=== PATIENT | male | born 1960 | race Caucasian/White ===

== ENCOUNTER 2018-11-18 14:02 | Emergency (ER) | payer OTHER, SELFPAY ==
[2018-11-18] VITALS (19 sets, daily range): BP systolic 125–136; BP diastolic 68–78; PULSE 64–84; RESP 12–22; TEMP 36.3; O2SAT 99–100
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
[2018-11-18] MEDS: Normal Saline 1,000 ML 1000 ML IV (14:50)
[2018-11-18 14:51] LABS: Abs Immature Grans 0.02 k/cumm (0.0-0.09); Absolute Basophil Count 0.02 k/cumm (0.0-0.2); Absolute Eosinophil Count 0.01 k/cumm (0.0-0.7); Absolute Monocyte Count 0.51 k/cumm (0.11-0.7); Absolute Neutrophil Count 6.68 k/cumm (1.2-6.7); Basophils % 0.2; Eosinophils % 0.1; HCT 39.5 % (40.0-50.0); HGB 13.5 g/dL (13.5-17.5); Immature Grans % 0.2; Lymphocytes % 11.1; Mean Corp. HGB Concentration 34.2 g/dL (32.0-36.0); Mean Corpuscular Hemoglobin 33.2 pg (27.0-33.0); Mean Corpuscular Volume 97.1 fL (80-95); Monocytes % 6.3; Neutrophils % 82.1; Platelet Count 190 x1000/uL (130-400); RBC 4.07 m/cumm (4.50-6.00); RBC Distribution Width 12.6 % (11.8-14.1); White Blood Cell Count 8.14 k/cumm (4.4-10.8)
[2018-11-18 15:05] LABS: ALT 29 U/L (12-78); AST 22 U/L (15-37); Albumin 3.8 g/dL (3.4-5.0); Alkaline Phosphatase 61 U/L (46-116); Anion Gap 8.1 mmol/L (3-11); BUN 23 mg/dL (7-18); Bilirubin, Total 1.5 mg/dL (0.2-1.0); CO2 27.9 mmol/L (21.0-32.0); CREATININE 1.13 mg/dL (0.70-1.30); Calcium 8.6 mg/dL (8.5-10.1); Chloride 106 mmol/L (98-107); Glucose 100 mg/dL (70-100); Potassium 4.7 mmol/L (3.5-5.1); Sodium 142 mmol/L (136-145); Total Protein 6.9 g/dL (6.4-8.2)
[2018-11-18] MEDS: ceFAZolin 2,000 MG in Normal Saline 100 ML 200 MG IVPB (16:27)
== END 2018-11-18 17:02 | disposition short-term general hospital (02) ==
PROVIDERS: Emergency Provider Student in an Organized Health Care Education/Training Program; PCP Family Medicine
DX: S12.291A Other nondisplaced fracture of third cervical vertebra, initial encounter for closed fracture (principal); S01.522A Laceration with foreign body of oral cavity, initial encounter; S01.511A Laceration without foreign body of lip, initial encounter; S01.111A Laceration without foreign body of right eyelid and periocular area, initial encounter; S06.9X9A Unspecified intracranial injury with loss of consciousness of unspecified duration, initial encounter; R41.0 Disorientation, unspecified; S00.81XA Abrasion of other part of head, initial encounter; V18.0XXA Pedal cycle driver injured in noncollision transport accident in nontraffic accident, initial encounter; Y93.55 Activity, bike riding
CPT/HCPCS: 36415; 80053; 90471; 96361; 96365; 99285; L0172; 70450; 70486; 72125; 85025; J0690